=== PATIENT | female | born 1975 | race Caucasian/White ===

== ENCOUNTER 2019-01-01 11:30 | Emergency (ER) | payer MEDICAID ==
[~2019-01-01 11:30] MED LIST: BICT1TAB PO; CEPH250C16 PO; FER325 PO; HYDR-5122 PO
--- NOTE | 2019-01-01 11:40 | NUR ---
PT HAS NOT BEEN TRIAGED, LEFT WITHOUT SEEN BY ER MD.
== END 2019-01-01 11:40 | disposition left against medical advice (07) ==
LOC: MED 11:30
DX: Z53.21 Procedure and treatment not carried out due to patient leaving prior to being seen by health care provider (principal)

== ENCOUNTER 2019-01-01 21:04 | Emergency (ER) | payer MEDICAID ==
[~2019-01-01] VITALS: Ht 157.5 cm; Wt 72.6 kg
[2019-01-01 21:07] VITALS: BP 130/83
--- NOTE | 2019-01-01 21:07 | NUR ---
TRIAGE COMPLETE. PT TO WAIT IN LOBBY FOR BED IN MAIN ED. VSS.
--- NOTE | 2019-01-01 22:25 | NUR ---
PT AMBULATED TO BED 09 WITH STEADY GAIT.
--- NOTE | 2019-01-01 22:46 | NUR ---
43 YO FEMALE BIB SELF FOR C/O ABD PAIN AFTER TAKING ABX MED. PT S/P COLON RESECTION 12/21. PT HAS MID ABD INCISION WITH RED, REDNESS AROUND RED WITHOUT DRAINAGE. PT DENIES FEVER/CHILLS. PT AAOX4, ACTIVE BOWEL SOUNDS. LAST BM 01/01/19. ANAYA LOCKED IN LOWEST POSITION. WILL UPDATE ERMD. WILL CONTINUE TO OBSERVE. RX: KEFLEX, IRON, NORCO HX: COLON RESECTION LMP: 12/09/18
[2019-01-01 23:52] VITALS: BP 115/62
== END 2019-01-01 23:52 | disposition home or self-care (01) ==
LOC: MED 21:04
DX: F41.9 Anxiety disorder, unspecified (principal); Z48.01 Encounter for change or removal of surgical wound dressing; Z85.038 Personal history of other malignant neoplasm of large intestine; Z90.49 Acquired absence of other specified parts of digestive tract
CPT/HCPCS: 99283